=== PATIENT | male | born 1995 | race Caucasian/White ===

== ENCOUNTER 2019-01-27 02:44 | Emergency (ER) | payer OTHER ==
--- NOTE | 2019-01-27 02:52 | PDOC ---
History of Present Illness - General Stated Complaint: CHEST PAIN Time Seen by Provider: 01/27/19 02:52 - History of Present Illness Initial Comments: 01/27/19 02:52 Mr. Chau is a 23 yo male w/ pmh of GERD who presents for evaluation of left sided chest pain. Patient reports he woke up approximately 2 hours ago and noticed "a feeling" in his left chest. This worried him and caused his heart to beat faster. Patient reports chest pain started around that time under his ribs. He believes his reflux may be acting up as well. Was feeling well earlier today. Denies other complaints at this time. The patient denies shortness of breath, headache and dizziness. Denies fever, chills, nausea, vomit, diarrhea and constipation. Denies dysuria, frequency, urgency and hematuria. Past History - Past Medical History Allergies/Adverse Reactions: Allergies Allergy/AdvReac Type Severity Reaction Status Date / Time No Known Allergies Allergy Verified 01/27/19 03:06 Home Medications: Ambulatory Orders NK [No Known Home Medication] 12/14/15 - Immunization History Immunization Up to Date: Yes - Suicide/Smoking/Psychosocial Hx Smoking History: Never smoked Have you smoked in the past 12 months: No Hx Alcohol Use: No Drug/Substance Use Hx: No Substance Use Type: None Review of Systems - Review of Systems Comments:: 01/27/19 02:53 GENERAL/CONSTITUTIONAL: No fever or chills. No weakness. HEAD, EYES, EARS, NOSE AND THROAT: No change in vision. No ear pain or discharge. No sore throat. CARDIOVASCULAR: +Chest pain as described. No shortness of breath RESPIRATORY: No cough, wheezing, or hemoptysis. GASTROINTESTINAL: No nausea, vomiting, diarrhea or constipation. GENITOURINARY: No dysuria, frequency, or change in urination. MUSCULOSKELETAL: No joint or muscle swelling or pain. No neck or back pain. SKIN: No rash NEUROLOGIC: No headache, vertigo, loss of consciousness, or change in strength/ sensation. ENDOCRINE: No increased thirst. No abnormal weight change HEMATOLOGIC/LYMPHATIC: No anemia, easy bleeding, or history of blood clots. ALLERGIC/IMMUNOLOGIC: No hives or skin allergy. *Physical Exam - Physical Exam Comments: 01/27/19 02:53 GENERAL: Awake, alert, and fully oriented, in no acute distress HEAD: No signs of trauma, normocephalic, atraumatic EYES: PERRLA, EOMI, sclera anicteric, conjunctiva clear ENT: Auricles normal inspection, hearing grossly normal, nares patent, oropharynx clear without exudates. Moist mucosa NECK: Normal ROM, supple, no lymphadenopathy, JVD, or masses LUNGS: No distress, speaks full sentences, clear to auscultation bilaterally HEART: Regular rate and rhythm, normal S1 and S2, no murmurs, rubs or gallops, peripheral pulses normal and equal bilaterally. ABDOMEN: Soft, nontender, normoactive bowel sounds. No guarding, no rebound. No masses EXTREMITIES: Normal inspection, Normal range of motion, no edema. No clubbing or cyanosis. NEUROLOGICAL: Cranial nerves II through XII grossly intact. Normal speech, normal gait, no focal sensorimotor deficits SKIN: Warm, Dry, normal turgor, no rashes or lesions noted. Medical Decision Making - Medical Decision Making 01/27/19 03:01 Mr. Chau is a 23 yo male w/ pmh as described who presents for evaluation of chest pain. Given patient's young age and lack of risk factors will evaluate with EKG and treat reflux with oral maalox and re-evaluate. 01/27/19 03:39 EKG non-ischemic, CXR negative. No concern for acute process at this time. Discharging to home. *DC/Admit/Observation/Transfer Diagnosis at time of Disposition: Chest pain Qualifiers: Chest pain type: unspecified Qualified Code(s): R07.9 - Chest pain, unspecified - Discharge Dispostion Disposition: HOME - Referrals Referrals: Zbigniew Hubbard MD [Primary Care Provider] - - Patient Instructions Printed Discharge Instructions: DI for Atypical Chest Pain Additional Instructions: You were evaluated today in the ER for your pain. We performed EKG and Chest X- ray with no concerning findings. Please follow-up with primary care provider in 1-2 days for further evaluation. Return to ER if any fever, chills, increase in pain, or other concerning symptoms. - Post Discharge Activity
[2019-01-27] MEDS ORDERED: MAG HYDROX/AL HYDROX/SIMETH 30 ML UNIT-DOSE CUP PO ONE (02:59)
[2019-01-27] MEDS ORDERED: MAG HYDROX/AL HYDROX/SIMETH 30 ML UNIT-DOSE CUP ONE (03:04)
[2019-01-27 03:07] VITALS: BP 133/79; PULSE 58; TEMP 97.5; BMI 27.8
--- NOTE | 2019-01-27 03:18 | PDOC ---
Attending Attestation - Resident Resident Name: Mario Nunez - ED Attending Attestation I have performed the following: I have examined & evaluated the patient, The case was reviewed & discussed with the resident, I agree w/resident's findings & plan, Exceptions are as noted - HPI HPI: 01/27/19 03:18 23M pmh of GERD and pericarditis about 2 years ago here with chest pain for 2 hours. Pt woke from sleep and noted discomfort on the L side of his chest under the lateral border of the breast. He describes it as an aching pain, non- radiating, 3-4/10. Aggravated by pressing on the site of tenderness. Pain is not positional. No fevers/chills, recent illness, travel - Physicial Exam PE: 01/27/19 03:24 Agree with general exam as documented by resident Well appearing, NAD, AOx3, VS noted in EMR Neck supple Chest wall no rash, lesions, deformities, +TTP just below edge of LLQ of L breast LCTAB Slow regular HR, no murmurs, friction rubs, gallops - Medical Decision Making 01/27/19 03:26 CP in young male, ACS, unlikely, PERC neg, pericarditis less likely, consider trauma, inflammation, msk px POCUS shows no effusion around heart Non-ischemic ekg Analgesia f/u xr re-eval 01/27/19 03:47 CXR no obvious bony injuries, normal heart, normal lung bhakta, no effusions
--- NOTE | 2019-01-27 10:54 | EKG ---
Test Reason : Blood Pressure : / mmHG Vent. Rate : 055 BPM Atrial Rate : 055 BPM P-R Int : 132 ms QRS Dur : 112 ms QT Int : 424 ms P-R-T Axes : -19 077 035 degrees QTc Int : 405 ms SINUS BRADYCARDIA VOLTAGE CRITERIA FOR LEFT VENTRICULAR HYPERTROPHY ABNORMAL ECG NO PREVIOUS ECGS AVAILABLE Confirmed by JANELLE RIVERA MD ([id number]) on 01/27/2019 10:53:47 AM Referred By: Confirmed By:JANELLE RIVERA MD
== END 2019-01-27 03:43 | disposition home or self-care (01) ==
LOC: JER 02:44
DX: R07.9 Chest pain, unspecified (principal)
CPT/HCPCS: 71046-TC-FY; 93005; 93010; 99283-25

== ENCOUNTER 2019-09-28 17:04 | Emergency (ER) | payer OTHER ==
[2019-09-28 17:12] VITALS: BP 136/63; PULSE 60; TEMP 97.9; BMI 27.1
[2019-09-28] MEDS ORDERED: KETOROLAC TROMETHAMINE 30 MG/1 ML VIAL IM ONE (18:01)
[2019-09-28] MEDS ORDERED: KETOROLAC TROMETHAMINE 30 MG/1 ML VIAL ONE (18:09)
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
== END 2019-09-28 18:29 | disposition home or self-care (01) ==
LOC: JERFT 17:04
PROC: 3E0233Z Introduction of Anti-inflammatory into Muscle, Percutaneous Approach (ICD-10-PCS; principal; 2019-09-28)
DX: S13.4XXA Sprain of ligaments of cervical spine, initial encounter (principal); M54.12 Radiculopathy, cervical region; V43.52XA Car driver injured in collision with other type car in traffic accident, initial encounter; W22.11XA Striking against or struck by driver side automobile airbag, initial encounter; Y92.414 Local residential or business street as the place of occurrence of the external cause; Y93.89 Activity, other specified; Y99.8 Other external cause status
CPT/HCPCS: 99281-25